=== PATIENT | female | born 1995 | race Caucasian/White ===

== ENCOUNTER 2025-07-31 13:25 | Emergency (ER) | payer OTHER ==
[~2025-07-31] VITALS: Ht 157.5 cm; Wt 88.2 kg
[2025-07-31] MEDS: ACETAMINOPHEN 325 MG TAB PO ONE (14:29)
[2025-07-31 14:39] LABS: PLATELET COUNT, AUTOMATED 259 10^3/uL (150-450)
[2025-07-31 15:11] LABS: ALT/SGPT 25 U/L (7.0-40); AST/SGOT 16 U/L (<34); CALCIUM LEVEL 8.8 MG/DL (8.5-10.1); CARBON DIOXIDE LEVEL 24 MMOL/L (20-31); CHLORIDE LEVEL 108 MMOL/L (98-107); CREATININE FOR GFR 0.84 MG/DL (0.55-1.30); GLOMERULAR FILTRATION RATE > 90.0 (>60); POTASSIUM SERUM 3.8 MMOL/L (3.5-5.1); SODIUM LEVEL 139 MMOL/L (136-145)
[2025-07-31 17:30] VITALS: BP 95/51; TEMP 98.7; O2SAT 98
== END 2025-07-31 17:39 | disposition home or self-care (01) ==
LOC: EDBD 13:25 → M ED 13:25
DX: M54.50 Low back pain, unspecified (principal); V49.40XA Driver injured in collision with unspecified motor vehicles in traffic accident, initial encounter; M51.34 Other intervertebral disc degeneration, thoracic region; F41.9 Anxiety disorder, unspecified; Z88.1 Allergy status to other antibiotic agents